=== PATIENT | female | born 1995 | race Caucasian/White ===

== ENCOUNTER 2017-09-13 19:01 | Emergency (ER) | payer OTHER ==
[~2017-09-13] VITALS: Ht 154.9 cm; Wt 48.5 kg
[2017-09-13 19:08] VITALS: BP 120/70; TEMP 37.2; Ht 154.9 cm; Wt 48.5 kg
[2017-09-13] MEDS ORDERED: IBUPROFEN 200 MG TAB PO STA (19:37)
[2017-09-13] MEDS ORDERED: BCPILLS PO (19:38)
--- NOTE | 2017-09-13 20:22 | DIAGNOSTIC IMAGING REPORT ---
LEFT SECOND FINGER 3 VIEWS HISTORY: L 2nd digit shut in door, pain COMPARISON: None. FINDINGS: There is no fracture or dislocation. Soft tissues are unremarkable. No radiopaque foreign bodies. IMPRESSION: No fractures. Electronically signed by: Vinod Faria M.D. 09/13/2017 8:21 PM Dictated Date/Time: 09/13/2017 8:20 PM
--- NOTE | 2017-09-13 20:38 | EMERGENCY ROOM VISIT NOTE ---
ED Visit Note First contact with patient: 19:34 Chief Complaint: Hurt Left finger History of Present Illness: This patient is a 22-year-old female who presents to the Emergency Department via private vehicle for evaluation of their left index finger laceration/crush injury. Patient sustained the laceration about 0.5 hours prior to arrival when she accidentally shut the finger in a door. They report some decreased range of motion of the affected digit. They have tried nothing for the pain. Patient rates her current discomfort as a 7/10. Patient's Tetanus status is believed to be currently up-to-date. Medications: As noted below Allergies: As noted below PMH: No pertinent SHx: Patient is a [employer] student and lives locally. ROS: All pertinent positive and negative review of systems are appropriately documented in the History of Present Illness. Physical Exam: VITAL SIGNS - Vital signs and nursing notes were reviewed. Stable. GENERAL -22-year-old female appearing her stated age who is in no acute distress. Communicates well with provider and answers questions appropriately. SKIN - There is a 0.25 cm long laceration noted dorsal aspect of the patient's left second digit between the DIP and PIP joint. It is superficial and more like an abrasion. Upon further examination there are no deep structures including vessel, tendon, or bony structures appreciated. There is no active bleeding noted. MUSCULOSKELETAL - Laceration/abrasion as described above. +5/5 strength appreciated of the affected digit. Decreased range of motion secondary to pain. She is neurovascularly intact in this region. IMAGING: LEFT SECOND FINGER 3 VIEWS HISTORY: L 2nd digit shut in door, pain COMPARISON: None. FINDINGS: There is no fracture or dislocation. Soft tissues are unremarkable. No radiopaque foreign bodies. IMPRESSION: No fractures. Electronically signed by: Vinod Faria M.D. 09/13/2017 8:21 PM Dictated Date/Time: 09/13/2017 8:20 PM ED Course: Patient was seen and evaluated by myself. She has pain in her left finger status post shutting it in the door. Small abrasion/laceration noted to the finger that will not require repair. There is no bleeding. It is superficial. X-ray was obtained with results as above. No acute fracture. Wound was cleansed. This was dressed with a bacitracin dressing and a finger split was applied. Patient is to follow-up with orthopedics if her pain persists or return with worsening. She was educated upon management, educated upon worrisome symptoms in which to return, had questions answered prior to discharge , and was discharged home in good condition. In the evaluation and treatment of this patient, the following differential diagnoses were considered: Finger Fracture, Finger Dislocation, Finger Sprain, Finger Contusion, Jersey Finger, or Mallet Finger. Current/Historical Medications Scheduled Control Pills ( Control Pills), 1 TAB PO DAILY Allergies Coded Allergies: Cefdinir (Unverified Allergy, Unknown, RASH, 09/13/17) Sodium Benzoate (Unverified Allergy, Unknown, RASH, 09/13/17) Vital Signs Date Time Temp Pulse Resp B/P (MAP) Pulse Ox O2 Delivery O2 Flow Rate FiO2 09/13/17 20:52 68 16 97 09/13/17 19:08 37.2 70 16 120/70 95 Room Air Medications Administered Medications (Trade) Dose Ordered Sig/Aneudy Route Start Time Stop Time Status Last Admin Dose Admin Ibuprofen (Advil Tab) 400 mg NOW STAT PO 09/13/17 19:37 09/13/17 19:39 DC 09/13/17 20:00 400 MG Departure Information Impression Primary Impression: Injury, crush, finger Dispostion Home / Self-Care Condition GOOD Referrals [facility] (PCP) Mikel Rivera MD Patient Instructions My [facility] Additional Instructions Discharge Instructions: Please wear the splint for comfort . If pain persists please follow up with orthopedics by calling Dr. Rivera Proper wound care is essential for adequate wound healing and infection prevention. You can shower and clean the wound with soap and water. Do not scour over the wound, pat dry with a towel. Look for signs of infection of the wound including: increased pain, swelling, foul discharge, streaking, or increased temperature. If any of these are noticed you should return to the Emergency Department for further assessment and treatment. As with any laceration you may have received nerve damage to the surrounding tissues. This damage may or may not be permanent. You should keep the area covered with sunscreen for the first 6 months to 1 year when at risk for exposure to help minimize scarring. You can also use scar reducing creams or Vitamin E oil to help minimize scarring. For pain control, you can use the following [id number] medicines (if >12 yo): - Regular strength (325mg/tab) Tylenol (acetaminophen) 2 tabs every 4-6 hours as needed. Do not exceed 12 tablets in a 24 hour period. Avoid taking more than 3 grams (3000 mg) of Tylenol per day. This includes any other sources of acetaminophen you may take on a regular basis. - Regular strength (200 mg/tab) Advil (ibuprofen) 1-2 tabs every 6 hours as needed. Do not exceed a dose of 3200 mg per day. Return to the emergency department if your symptoms worsen despite treatment course outlined above.
[2017-09-13 20:52] VITALS: PULSE 68; O2SAT 97
== END 2017-09-13 20:53 | disposition home or self-care (01) ==
LOC: C.EDB 19:03 → C.EDD 20:53
DX: S67.191A Crushing injury of left index finger, initial encounter (principal); W23.0XXA Caught, crushed, jammed, or pinched between moving objects, initial encounter; Z79.3 Long term (current) use of hormonal contraceptives; Z88.1 Allergy status to other antibiotic agents; Z88.8 Allergy status to other drugs, medicaments and biological substances